=== PATIENT | male | born 1955 | race Hispanic/Latino ===

== ENCOUNTER 2017-11-30 07:31 | Inpatient (IN) | payer OTHER ==
[2017-11-28 10:25] VITALS: BP 129/74
[2017-11-28 10:30] LABS: BASOPHILS % (AUTO) 2.4 % (0.0-5.0); EOSINOPHILS % (AUTO) 2.7 % (0.0-8.0); HEMATOCRIT 40.7 % (42-54); LYMPHOCYTES % (AUTO) 39.5 % (21.0-51.0); MEAN CORPUSCULAR HEMOGLOBIN 21.8 pg (27.0-33.0); MEAN CORPUSCULAR HGB CONC 32.4 g/dL (32.0-36.0); MEAN CORPUSCULAR VOLUME 67.1 fL (79-99); MONOCYTES % (AUTO) 10.4 % (3.0-13.0); NUCLEATED RED BLOOD CELLS 0.1 % (0.0-0.19); PLATELET COUNT (AUTO) 233 K/uL (130-400); RED BLOOD CELL COUNT(AUTO) 6.06 MIL/uL (4.50-6.20); RED CELL DISTRIBUTION WIDTH 17.7 % (11.0-15.5); WHITE BLOOD COUNT (AUTO) 10.1 K/uL (4.8-10.8)
[2017-11-28 10:40] LABS: CREATININE 0.8 mg/dL (0.5-1.5); POTASSIUM 4.2 mmol/L (3.5-5.1)
[~2017-11-30] VITALS: Ht 177.8 cm; Wt 125.2 kg
[2017-11-30] VITALS (9 sets, daily range): BP systolic 131–165; BP diastolic 56–87
[~2017-11-30 07:31] MED LIST: ASPI-1181 PO; ATOR40TA71 PO; INSLAN SQ; INSU100I3 SQ; LIRA0.6P SQ; METF10004 PO; SERT50TA12 PO; VANCOMYCIN 1GM+NS 250ML 250 ML IV PRN; VERA180C2 PO
[2017-11-30 08:07] LABS: INR 1.02 (0.85-1.15); PARTIAL THROMBOPLASTIN TIME 25.4 SEC (26.3-35.5); PROTHROMBIN TIME 10.7 SEC (9.6-11.6)
[2017-11-30] MEDS ORDERED: SODIUM CHLORIDE 0.9% 1000ML 1,000 ML IV ONE (08:17)
[2017-11-30] MEDS ORDERED: MIDAZOLAM HCL 1 MG/ML 2ML VIAL ONE (11:35)
[2017-11-30] MEDS ORDERED: MEPERIDINE-PF 25 MG/ML SYG ONE (11:35)
[2017-11-30] MEDS ORDERED: LIDOCAINE HCL-MPF 2% 5ML VIAL ONE ×2 (11:35→12:18)
[2017-11-30] MEDS ORDERED: ISOPROTERENOL HCL 0.2 MG/ML AMP/VIAL/BAG ONE (11:36)
[2017-11-30 13:15] LABS: CREATINE KINASE MB 0.7 ng/mL (0.5-3.6); CREATINE KINASE, TOTAL 45 U/L (21-232); MYOGLOBIN 31 ng/mL (10-92); TROPONIN I < 0.04 ng/mL (0.00-0.06)
[2017-11-30] MEDS ORDERED: ACETAMINOPHEN-CODEINE 300/30MG TAB PO PRN (13:45)
[2017-11-30] MEDS ORDERED: DEXTROSE 50%-WATER 50 ML DISP.SYRIN IV PRN (13:45)
[2017-11-30] MEDS ORDERED: ACETAMINOPHEN 325 MG TAB PO PRN (13:45)
[2017-11-30] MEDS ORDERED: GLUCAGON 1MG KIT 1 MG ML IM PRN (13:45)
[2017-11-30] MEDS ORDERED: REGADENOSON 0.4 MG/5 ML PF SYG IVP SCH (15:30)
[2017-11-30] MEDS: INSULIN GLARGINE 100 UNITS/ML 10 ML VIAL SQ SCH (19:45)
[2017-11-30] MEDS: INSULIN HUMULIN R 100 UNIT/ML 3ML SQ SCH ×2 (19:45→21:25)
[2017-11-30] MEDS: INSULIN LISPRO 100 UNIT/ML 3ML SQ SCH (19:45)
[2017-11-30] MEDS: ATORVASTATIN CALCIUM 40 MG TABLET PO SCH (20:12)
[2017-11-30] MEDS: LIRAGLUTIDE 1.2 MG SQ SCH (20:12)
[2017-12-01] VITALS (10 sets, daily range): BP systolic 121–158; BP diastolic 43–84
[2017-12-01] MEDS: INSULIN LISPRO 100 UNIT/ML 3ML SQ SCH ×3 (05:54→17:48)
[2017-12-01] MEDS: INSULIN HUMULIN R 100 UNIT/ML 3ML SQ SCH ×4 (05:55→21:31)
[2017-12-01] MEDS: SERTRALINE HCL 50 MG TABLET PO SCH (08:37)
[2017-12-01] MEDS: ASPIRIN 81 MG EC TAB PO SCH (08:37)
[2017-12-01] MEDS: INSULIN GLARGINE 100 UNITS/ML 10 ML VIAL SQ SCH ×2 (08:40→17:48)
[2017-12-01] MEDS ORDERED: IOPAMIDOL-370 75 ML VIAL IV ONE ×2 (12:00→14:02)
[2017-12-01] MEDS ORDERED: BIVALIRUDIN 250 MG/VIAL IV ONE (14:00)
[2017-12-01] MEDS ORDERED: LIDOCAINE HCL-MPF 2% 5ML VIAL ONE (14:00)
[2017-12-01] MEDS ORDERED: NITROGLYCERIN 5 MG/ML 10 ML VIAL IV ONE (14:00)
[2017-12-01] MEDS ORDERED: IOHEXOL-350 50ML VIAL IV ONE (14:02)
[2017-12-01] MEDS ORDERED: SODIUM CHLORIDE 0.9% 1000ML 1,000 ML IV SCH (15:29)
[2017-12-01] MEDS: LIRAGLUTIDE 1.2 MG SQ SCH (20:26)
[2017-12-01] MEDS: ATORVASTATIN CALCIUM 40 MG TABLET PO SCH (20:28)
[2017-12-02 00:22] VITALS: BP 149/60
[2017-12-02 04:14] VITALS: BP 115/71
[2017-12-02 05:00] LABS: HEMATOCRIT 40.6 % (42-54); MEAN CORPUSCULAR HEMOGLOBIN 21.7 pg (27.0-33.0); MEAN CORPUSCULAR HGB CONC 32.4 g/dL (32.0-36.0); PLATELET COUNT (AUTO) 225 K/uL (130-400); RED BLOOD CELL COUNT(AUTO) 6.06 MIL/uL (4.50-6.20); RED CELL DISTRIBUTION WIDTH 17.8 % (11.0-15.5); WHITE BLOOD COUNT (AUTO) 10.4 K/uL (4.8-10.8)
[2017-12-02 05:15] LABS: CREATININE 0.9 mg/dL (0.5-1.5); POTASSIUM 3.5 mmol/L (3.5-5.1)
[2017-12-02] MEDS: INSULIN HUMULIN R 100 UNIT/ML 3ML SQ SCH ×4 (06:11→20:55)
[2017-12-02] MEDS: INSULIN LISPRO 100 UNIT/ML 3ML SQ SCH ×3 (06:41→16:35)
[2017-12-02] MEDS: ASPIRIN 81 MG EC TAB PO SCH (07:50)
[2017-12-02] MEDS: SERTRALINE HCL 50 MG TABLET PO SCH (07:50)
[2017-12-02] MEDS: INSULIN GLARGINE 100 UNITS/ML 10 ML VIAL SQ SCH ×2 (07:52→16:36)
[2017-12-02 07:56] VITALS: BP 128/59
[2017-12-02 11:00] VITALS: BP 156/79
[2017-12-02 16:39] VITALS: BP 141/70
[2017-12-02] MEDS: LIRAGLUTIDE 1.2 MG SQ SCH (20:04)
[2017-12-02] MEDS: ATORVASTATIN CALCIUM 40 MG TABLET PO SCH (20:14)
[2017-12-03 00:04] VITALS: BP 141/77
[2017-12-03 05:06] VITALS: BP 120/68
[2017-12-03] MEDS: INSULIN HUMULIN R 100 UNIT/ML 3ML SQ SCH ×4 (06:09→21:40)
[2017-12-03] MEDS: INSULIN LISPRO 100 UNIT/ML 3ML SQ SCH ×3 (06:21→17:00)
[2017-12-03 07:40] VITALS: BP 151/71
[2017-12-03] MEDS: SERTRALINE HCL 50 MG TABLET PO SCH (07:58)
[2017-12-03] MEDS: ASPIRIN 81 MG EC TAB PO SCH (07:58)
[2017-12-03] MEDS: INSULIN GLARGINE 100 UNITS/ML 10 ML VIAL SQ SCH ×2 (08:02→17:01)
[2017-12-03 11:40] VITALS: BP 125/68
[2017-12-03] MEDS ORDERED: ALPRAZOLAM 0.25 MG TABLET PO PRN (13:45)
[2017-12-03 16:46] VITALS: BP 138/68
[2017-12-03 19:00] VITALS: BP 129/77
[2017-12-03] MEDS: LIRAGLUTIDE 1.2 MG SQ SCH (20:38)
[2017-12-03] MEDS: ATORVASTATIN CALCIUM 40 MG TABLET PO SCH (20:39)
[2017-12-04] VITALS (31 sets, daily range): BP systolic 93–146; BP diastolic 40–94
[2017-12-04 05:12] LABS: MEAN CORPUSCULAR VOLUME 66.6 fL (79-99); NUCLEATED RED BLOOD CELLS 0.1 % (0.0-0.19); PLATELET COUNT (AUTO) 223 K/uL (130-400); RED BLOOD CELL COUNT(AUTO) 5.85 MIL/uL (4.50-6.20); RED CELL DISTRIBUTION WIDTH 17.9 % (11.0-15.5); WHITE BLOOD COUNT (AUTO) 10.9 K/uL (4.8-10.8)
[2017-12-04 05:13] LABS: CREATININE 0.8 mg/dL (0.5-1.5); POTASSIUM 3.2 mmol/L (3.5-5.1)
[2017-12-04 05:15] LABS: HEMOGLOBIN A1C 9.4 % (4.0-6.0)
[2017-12-04 05:16] LABS: INR 1.02 (0.85-1.15); PARTIAL THROMBOPLASTIN TIME 25.9 SEC (26.3-35.5); PROTHROMBIN TIME 10.7 SEC (9.6-11.6)
[2017-12-04] MEDS: INSULIN HUMULIN R 100 UNIT/ML 3ML SQ SCH ×2 (05:45→11:30)
[2017-12-04] MEDS: INSULIN LISPRO 100 UNIT/ML 3ML SQ SCH ×2 (05:45→11:30)
[2017-12-04 05:57] LABS: BAND NEUTROPHILS % (MANUAL) 2 % (0-2); BASOPHILS % (MANUAL) 2 % (0-2); EOSINOPHILS % (MANUAL) 1 % (1-6); LYMPHOCYTES % (MANUAL) 50 % (22-44); MAN.DIFF COMMENT-IMPRESSION MANUAL DIFFERENTIAL; MONOCYTES % (MANUAL) 6 % (2-9); PLATELET MORPHOLOGY COMMENT ADEQUATE; REACTIVE LYMPHOCYTES 1 % (0-0); SEGMENTED NEUTROPHILS % 38 % (40-70)
[2017-12-04] MEDS: INSULIN GLARGINE 100 UNITS/ML 10 ML VIAL SQ SCH (08:00)
[2017-12-04] MEDS ORDERED: NITROGLYCERIN 50 MG/D5% WATER 1 BOT ONE (08:02)
[2017-12-04] MEDS: ASPIRIN 81 MG EC TAB PO SCH (08:22)
[2017-12-04] MEDS: SERTRALINE HCL 50 MG TABLET PO SCH (08:22)
[2017-12-04] MEDS ORDERED: POTASSIUM CHLORIDE 20MEQ/100ML 300 ML IV ONE (09:15)
[2017-12-04] MEDS ORDERED: SODIUM BICARB 50MEQ 50ML VIAL ONE ×3 (09:16→15:30)
[2017-12-04] MEDS ORDERED: LIDOCAINE HCL-MPF 1% 2ML VIAL IVP PRN (09:30)
[2017-12-04] MEDS ORDERED: POTASSIUM CHLORIDE 20MEQ/100ML 100 ML IV PRN (09:30)
[2017-12-04] MEDS ORDERED: OCTYL 2-CYANOACRYLATE 1 EACH TP ONE (10:55)
[2017-12-04] MEDS ORDERED: BUPIVACAINE/PF 0.5% 30ML VIAL ONE (10:55)
[2017-12-04] MEDS ORDERED: BACITRACIN 50,000 UNIT VIAL ONE (10:56)
[2017-12-04] MEDS ORDERED: LIDOCAINE HCL-MPF 2% 5ML VIAL ONE (11:01)
[2017-12-04] MEDS ORDERED: MIDAZOLAM HCL 1 MG/ML 2ML VIAL ONE (11:31)
[2017-12-04] MEDS ORDERED: LIDOCAINE PF 2% 5ML ABBOJECT ONE (11:44)
[2017-12-04] MEDS ORDERED: NOREPINEPHRINE BITARTRATE 1 MG/1 ML ML IV ONE (11:44)
[2017-12-04] MEDS ORDERED: AMINOCAPROIC ACID 250 MG/ML 20 ML VIAL IV ONE (11:44)
[2017-12-04] MEDS ORDERED: GLYCOPYRROLATE 0.2 MG/ML 5 ML VIAL ONE (11:44)
[2017-12-04] MEDS ORDERED: NEOSTIGMINE 5MG/5ML SYR IV ONE (11:44)
[2017-12-04] MEDS ORDERED: PROTAMINE SULFATE 10 MG/ML 25ML VIAL IV ONE (11:44)
[2017-12-04] MEDS ORDERED: EPINEPHRINE 1 MG/ML AMPULE ONE (11:44)
[2017-12-04] MEDS ORDERED: HEPARIN SODIUM 1000UNIT/ML 10ML VIAL ONE ×2 (11:44→12:07)
[2017-12-04] MEDS ORDERED: ROCURONIUM BROMIDE 10MG/1ML 5ML VL ONE ×2 (11:44→11:46)
[2017-12-04] MEDS ORDERED: ESMOLOL HCL 10 MG/ML 10 ML VIAL ONE (11:44)
[2017-12-04] MEDS ORDERED: MILRINONE-D5W 20 MG/100 ML 100 ML IV ONE (11:44)
[2017-12-04] MEDS ORDERED: CEFUROXIME SODIUM 1.5 GM VIAL ONE (11:44)
[2017-12-04] MEDS ORDERED: PROPOFOL 10 MG/ML 20ML VIAL IV ONE (11:45)
[2017-12-04] MEDS ORDERED: FENTANYL CITRATE PF 50 MCG/1 ML 20ML VIAL IJ ONE (11:45)
[2017-12-04] MEDS ORDERED: MIDAZOLAM HCL 1 MG/ML 5ML VIAL ONE (11:45)
[2017-12-04] MEDS ORDERED: THROMBIN-JMI 5000 UNIT/VIAL TP ONE (12:07)
[2017-12-04 12:27] LABS: ABG BASE EXCESS -1.6 mmol/L (-2.0-3.0); ABG HCO3 24.1 mmol/L (21.0-28.0); ABG PCO2 44 mmHg (35-48)
[2017-12-04 13:27] LABS: ABG BASE EXCESS -4.1 mmol/L (-2.0-3.0); ABG HCO3 22.4 mmol/L (21.0-28.0); ABG OXYGEN SATURATION 98.9 % (95.0-99.0); ABG PCO2 46 mmHg (35-48)
[2017-12-04 13:59] LABS: ABG BASE EXCESS -1.6 mmol/L (-2.0-3.0); ABG HCO3 24.8 mmol/L (21.0-28.0); ABG OXYGEN SATURATION 92.5 % (95.0-99.0); ABG PCO2 49 mmHg (35-48)
[2017-12-04 14:36] LABS: ABG BASE EXCESS -1.2 mmol/L (-2.0-3.0); ABG HCO3 25.3 mmol/L (21.0-28.0); ABG OXYGEN SATURATION 98.9 % (95.0-99.0); ABG PCO2 50 mmHg (35-48)
[2017-12-04] MEDS ORDERED: SODIUM CHLORIDE 0.9% 500ML 500 ML IV SCH (14:37)
[2017-12-04] MEDS ORDERED: AMINOCAPROIC ACID 15,000 MG in SODIUM CHLORIDE 0.9% 250 ML IV SCH (14:45)
[2017-12-04] MEDS ORDERED: PROPOFOL 1000 MG/100 ML 100 ML IV PRN ×2 (14:45→15:15)
[2017-12-04] MEDS ORDERED: EPINEPHRINE 2 MG in SODIUM CHLORIDE 0.9% 250 ML IV PRN (14:45)
[2017-12-04] MEDS ORDERED: NITROGLYCERIN 50 MG/D5% WATER 250 BOT IV SCH (14:45)
[2017-12-04] MEDS ORDERED: SODIUM CHLORIDE 0.9% 1000ML 1,000 ML IV SCH (14:45)
[2017-12-04] MEDS ORDERED: NICARDIPINE HCL 100 MG in SODIUM CHLORIDE 0.9% 100 ML IV PRN (14:45)
[2017-12-04] MEDS ORDERED: ALBUMIN (HUMAN) 5% 250 ML IV PRN (14:45)
[2017-12-04] MEDS ORDERED: TRAMADOL HCL 50 MG TABLET PO PRN (14:45)
[2017-12-04] MEDS ORDERED: GLUCAGON 1MG KIT 1 MG ML IM PRN (14:45)
[2017-12-04] MEDS ORDERED: INSULIN REGULAR, HUMAN 3ML 100 UNIT in SODIUM CHLORIDE 0.9% 99 ML IV SCH ×2 (14:45)
[2017-12-04] MEDS ORDERED: ONDANSETRON HCL 4 MG/2 ML VIAL IV PRN (14:45)
[2017-12-04] MEDS ORDERED: CALCIUM GLUCONATE 1 GM in SODIUM CHLORIDE 0.9% 50 ML IV PRN (14:45)
[2017-12-04] MEDS ORDERED: MORPHINE SULFATE 4 MG/1ML SYG IV PRN (14:45)
[2017-12-04] MEDS ORDERED: NOREPINEPHRINE 4MG/NS 250ML 250 ML IV PRN (14:45)
[2017-12-04] MEDS ORDERED: ACETAMINOPHEN 650 MG SUPPOSITORY RC PRN (14:45)
[2017-12-04] MEDS ORDERED: DEXTROSE 50%-WATER 50 ML DISP.SYRIN IV PRN (14:45)
[2017-12-04] MEDS ORDERED: SODIUM CHLORIDE 0.9% 250 ML IV PRN (14:45)
[2017-12-04] MEDS ORDERED: POTASSIUM PHOS 15 mMOL+NS250ML 250 ML IV PRN (14:45)
[2017-12-04] MEDS ORDERED: SODIUM CHLORIDE 0.9% 10 ML VIAL IVP PRN (14:45)
[2017-12-04] MEDS ORDERED: ALBUMIN (HUMAN) 5% 250 ML IV ONE ×2 (15:18→15:26)
[2017-12-04 15:23] LABS: ABG BASE EXCESS -6.2 mmol/L (-2.0-3.0); ABG HCO3 21.3 mmol/L (21.0-28.0); ABG PCO2 51 mmHg (35-48)
[2017-12-04 15:57] LABS: ABG BASE EXCESS -3.5 mmol/L (-2.0-3.0); ABG HCO3 21.9 mmol/L (21.0-28.0); ABG OXYGEN SATURATION 92.1 % (95.0-99.0); ABG PCO2 41 mmHg (35-48)
[2017-12-04 16:41] LABS: ABG BASE EXCESS -7.5 mmol/L (-2.0-3.0); ABG HCO3 19.8 mmol/L (21.0-28.0); ABG OXYGEN SATURATION 92.8 % (95.0-99.0); ABG PCO2 47 mmHg (35-48)
[2017-12-04 16:42] LABS: HEMATOCRIT 39.7 % (42-54); MEAN CORPUSCULAR HEMOGLOBIN 21.6 pg (27.0-33.0); MEAN CORPUSCULAR HGB CONC 31.8 g/dL (32.0-36.0); NUCLEATED RED BLOOD CELLS 0.1 % (0.0-0.19); PLATELET COUNT (AUTO) 283 K/uL (130-400); RED BLOOD CELL COUNT(AUTO) 5.85 MIL/uL (4.50-6.20); RED CELL DISTRIBUTION WIDTH 17.8 % (11.0-15.5)
[2017-12-04] MEDS: POTASSIUM CHLORIDE 20MEQ/100ML 100 ML IV PRN (16:44)
[2017-12-04 16:45] LABS: WHITE BLOOD COUNT (AUTO) 36.3 K/uL (4.8-10.8)
[2017-12-04] MEDS: SODIUM BICARB 50MEQ 50ML VIAL IV PRN ×2 (16:50→18:12)
[2017-12-04 16:55] LABS: MAGNESIUM 1.2 mg/dL (1.80-2.40); PHOSPHORUS 5.4 mg/dL (2.5-4.9); POTASSIUM 3.6 mmol/L (3.5-5.1)
[2017-12-04 17:05] LABS: BAND NEUTROPHILS % (MANUAL) 4 % (0-2); BASOPHILS % (MANUAL) 1 % (0-2); LYMPHOCYTES % (MANUAL) 21 % (22-44); MONOCYTES % (MANUAL) 6 % (2-9); SEGMENTED NEUTROPHILS % 68 % (40-70)
[2017-12-04 17:06] LABS: MAN.DIFF COMMENT-IMPRESSION MANUAL DIFFERENTIAL; PLATELET MORPHOLOGY COMMENT GIANT PLTS PRESENT
[2017-12-04] MEDS: MAGNESIUM 2GM PREMIX 50ML 50 ML IV PRN (17:21)
[2017-12-04] MEDS: MORPHINE SULFATE 2 MG/ML 1ML SYG IV PRN (17:25)
[2017-12-04 18:10] LABS: ABG BASE EXCESS -6.6 mmol/L (-2.0-3.0); ABG OXYGEN SATURATION 96.1 % (95.0-99.0); ABG PCO2 44 mmHg (35-48)
[2017-12-04 20:34] LABS: ABG BASE EXCESS -0.9 mmol/L (-2.0-3.0); ABG HCO3 23.8 mmol/L (21.0-28.0); ABG PCO2 40 mmHg (35-48)
[2017-12-04] MEDS: ATORVASTATIN CALCIUM 40 MG TABLET PO SCH (21:00)
[2017-12-04] MEDS ORDERED: CEFUROXIME 1.5GM+NS 100ML 100 ML IV SCH (22:45)
[2017-12-04] MEDS: CEFUROXIME SODIUM 1.5 GM VIAL IVP SCH (23:37)
[2017-12-05] VITALS (38 sets, daily range): BP systolic 109–153; BP diastolic 61–92
[2017-12-05 00:25] LABS: ABG HCO3 28.7 mmol/L (21.0-28.0); ABG OXYGEN SATURATION 97.1 % (95.0-99.0); ABG PCO2 43 mmHg (35-48)
[2017-12-05] MEDS: ACETAMINOPHEN 325 MG TAB PO PRN ×2 (00:48→05:20)
[2017-12-05] MEDS: MORPHINE SULFATE 2 MG/ML 1ML SYG IV PRN ×3 (00:50→19:23)
[2017-12-05 02:04] LABS: ABG BASE EXCESS 4.8 mmol/L (-2.0-3.0); ABG HCO3 29.6 mmol/L (21.0-28.0); ABG OXYGEN SATURATION 95.5 % (95.0-99.0); ABG PCO2 44 mmHg (35-48)
[2017-12-05 03:59] LABS: HEMATOCRIT 37.7 % (42-54); MEAN CORPUSCULAR HEMOGLOBIN 21.5 pg (27.0-33.0); MEAN CORPUSCULAR HGB CONC 31.9 g/dL (32.0-36.0); MEAN CORPUSCULAR VOLUME 67.4 fL (79-99); PLATELET COUNT (AUTO) 178 K/uL (130-400); RED CELL DISTRIBUTION WIDTH 18.1 % (11.0-15.5); WHITE BLOOD COUNT (AUTO) 18.9 K/uL (4.8-10.8)
[2017-12-05 04:09] LABS: INR 1.09 (0.85-1.15); PARTIAL THROMBOPLASTIN TIME 25.7 SEC (26.3-35.5); PROTHROMBIN TIME 11.4 SEC (9.6-11.6)
[2017-12-05 04:11] LABS: CREATININE 0.8 mg/dL (0.5-1.5); MAGNESIUM 1.6 mg/dL (1.80-2.40); POTASSIUM 3.6 mmol/L (3.5-5.1)
[2017-12-05] MEDS: PANTOPRAZOLE 40 MG/VIAL IV SCH (08:13)
[2017-12-05] MEDS ORDERED: DEXTROSE 5 %-0.45 % NACL 1,000 ML IV SCH (08:15)
[2017-12-05] MEDS: MAGNESIUM 2GM PREMIX 50ML 50 ML IV PRN (08:16)
[2017-12-05] MEDS: POTASSIUM CHLORIDE 20MEQ/100ML 100 ML IV PRN (08:16)
[2017-12-05] MEDS ORDERED: VANCOMYCIN 1GM+NS 250ML 250 ML IV SCH (10:30)
[2017-12-05] MEDS: CEFUROXIME SODIUM 1.5 GM VIAL IVP SCH ×2 (11:13→23:20)
[2017-12-05] MEDS ORDERED: LIDOCAINE HCL MPF 1% 5ML VIAL ONE ×2 (12:11→12:13)
[2017-12-05] MEDS ORDERED: BUPIVACAINE/PF 0.25% 30ML VIAL IJ ONE (12:11)
[2017-12-05] MEDS ORDERED: VANCOMYCIN 1GM+NS 250ML 500 ML IV ONE (12:27)
[2017-12-05] MEDS ORDERED: MEPERIDINE-PF 25 MG/ML SYG ONE ×2 (12:35→12:48)
[2017-12-05] MEDS ORDERED: MIDAZOLAM HCL 1 MG/ML 2ML VIAL ONE ×2 (12:35→12:48)
[2017-12-05] MEDS ORDERED: ACETAMINOPHEN 325 MG TAB PO PRN (13:45)
[2017-12-05] MEDS ORDERED: ACETAMINOPHEN-CODEINE 300/30MG TAB PO PRN ×2 (13:45)
[2017-12-05] MEDS: SERTRALINE HCL 50 MG TABLET PO SCH (16:58)
[2017-12-05] MEDS: ASPIRIN 81 MG EC TAB PO SCH (16:58)
[2017-12-05] MEDS ORDERED: METOPROLOL TARTRATE 25 MG TAB PO SCH (21:00)
[2017-12-05] MEDS: ATORVASTATIN CALCIUM 40 MG TABLET PO SCH (21:15)
[2017-12-06] VITALS (21 sets, daily range): BP systolic 111–150; BP diastolic 52–98
[2017-12-06] MEDS: MORPHINE SULFATE 2 MG/ML 1ML SYG IV PRN ×2 (00:56→04:19)
[2017-12-06 04:29] LABS: MEAN CORPUSCULAR HEMOGLOBIN 22.1 pg (27.0-33.0); MEAN CORPUSCULAR HGB CONC 32.7 g/dL (32.0-36.0); MEAN CORPUSCULAR VOLUME 67.7 fL (79-99); PLATELET COUNT (AUTO) 182 K/uL (130-400); RED BLOOD CELL COUNT(AUTO) 5.17 MIL/uL (4.50-6.20); RED CELL DISTRIBUTION WIDTH 18.3 % (11.0-15.5); WHITE BLOOD COUNT (AUTO) 20.6 K/uL (4.8-10.8)
[2017-12-06 04:49] LABS: CREATININE 0.8 mg/dL (0.5-1.5); MAGNESIUM 1.8 mg/dL (1.80-2.40); POTASSIUM 3.6 mmol/L (3.5-5.1)
[2017-12-06] MEDS: ASPIRIN 81 MG EC TAB PO SCH (09:00)
[2017-12-06] MEDS: METOPROLOL TARTRATE 25 MG TAB PO SCH ×2 (09:00→20:06)
[2017-12-06] MEDS: SERTRALINE HCL 50 MG TABLET PO SCH (09:00)
[2017-12-06] MEDS ORDERED: DEXTROSE 50%-WATER 50 ML DISP.SYRIN IV PRN (09:15)
[2017-12-06] MEDS ORDERED: GLUCAGON 1MG KIT 1 MG ML IM PRN (09:15)
[2017-12-06] MEDS ORDERED: POTASSIUM CHLORIDE 20MEQ/100ML 100 ML IV PRN (09:15)
[2017-12-06] MEDS ORDERED: LIDOCAINE HCL-MPF 1% 2ML VIAL IVP PRN (09:15)
[2017-12-06] MEDS: PANTOPRAZOLE 40 MG/VIAL IV SCH (09:25)
[2017-12-06] MEDS: POTASSIUM CHLORIDE 20 MEQ ERTAB PO PRN ×2 (09:25→11:24)
[2017-12-06] MEDS: MAGNESIUM 2GM PREMIX 50ML 50 ML IV PRN (11:25)
[2017-12-06] MEDS: INSULIN HUMULIN R 100 UNIT/ML 3ML SQ SCH ×3 (11:47→20:24)
[2017-12-06] MEDS: ATORVASTATIN CALCIUM 40 MG TABLET PO SCH (20:06)
[2017-12-06] MEDS: TRAMADOL HCL 50 MG TABLET PO PRN (20:07)
[2017-12-07] VITALS (16 sets, daily range): BP systolic 104–159; BP diastolic 49–97
[2017-12-07] MEDS: TRAMADOL HCL 50 MG TABLET PO PRN (01:51)
[2017-12-07 03:35] LABS: BASOPHILS % (AUTO) 0.7 % (0.0-5.0); EOSINOPHILS % (AUTO) 0.4 % (0.0-8.0); LYMPHOCYTES % (AUTO) 16.2 % (21.0-51.0); MEAN CORPUSCULAR HEMOGLOBIN 21.9 pg (27.0-33.0); MEAN CORPUSCULAR HGB CONC 32.3 g/dL (32.0-36.0); MEAN CORPUSCULAR VOLUME 67.6 fL (79-99); MONOCYTES % (AUTO) 12.9 % (3.0-13.0); NEUTROPHILS % (AUTO) 69.8 % (40.0-77.0); PLATELET COUNT (AUTO) 173 K/uL (130-400); RED BLOOD CELL COUNT(AUTO) 4.88 MIL/uL (4.50-6.20); RED CELL DISTRIBUTION WIDTH 18.1 % (11.0-15.5); WHITE BLOOD COUNT (AUTO) 15.7 K/uL (4.8-10.8)
[2017-12-07 03:56] LABS: CREATININE 0.8 mg/dL (0.5-1.5); POTASSIUM 3.5 mmol/L (3.5-5.1)
[2017-12-07] MEDS: INSULIN HUMULIN R 100 UNIT/ML 3ML SQ SCH ×4 (05:32→21:32)
[2017-12-07] MEDS: INSULIN GLARGINE 100 UNITS/ML 10 ML VIAL SQ SCH (07:57)
[2017-12-07] MEDS: POTASSIUM CHLORIDE 10% ELIXIR 20 MEQ/15 ML UDCUP PO PRN ×3 (07:58→11:30)
[2017-12-07] MEDS: SERTRALINE HCL 50 MG TABLET PO SCH (07:58)
[2017-12-07] MEDS: METOPROLOL TARTRATE 25 MG TAB PO SCH ×2 (07:58→21:29)
[2017-12-07] MEDS: ASPIRIN 81 MG EC TAB PO SCH (07:59)
[2017-12-07] MEDS: FUROSEMIDE 20 MG TABLET PO SCH ×2 (07:59→21:30)
[2017-12-07] MEDS ORDERED: PHARMACY COMMUNICATION MISC SCH (09:00)
[2017-12-07] MEDS: POTASSIUM CHLORIDE 20 MEQ ERTAB PO SCH ×2 (09:00→21:30)
[2017-12-07] MEDS: PANTOPRAZOLE 40 MG/VIAL IV SCH (09:00)
[2017-12-07] MEDS: ENOXAPARIN SODIUM 40 MG/0.4 ML SYRINGE SQ SCH (09:00)
[2017-12-07] MEDS: ATORVASTATIN CALCIUM 40 MG TABLET PO SCH (21:30)
[2017-12-08 03:50] VITALS: BP 133/80
[2017-12-08 04:13] LABS: MAGNESIUM 1.7 mg/dL (1.80-2.40); POTASSIUM 3.2 mmol/L (3.5-5.1)
[2017-12-08] MEDS: MAGNESIUM 2GM PREMIX 50ML 50 ML IV PRN (06:06)
[2017-12-08] MEDS: POTASSIUM CHLORIDE 20 MEQ ERTAB PO PRN ×2 (06:07→16:53)
[2017-12-08] MEDS: INSULIN HUMULIN R 100 UNIT/ML 3ML SQ SCH ×4 (06:10→21:37)
[2017-12-08 07:00] VITALS: BP 132/78
[2017-12-08] MEDS: ASPIRIN 81 MG EC TAB PO SCH (10:02)
[2017-12-08] MEDS: SERTRALINE HCL 50 MG TABLET PO SCH (10:02)
[2017-12-08] MEDS: PANTOPRAZOLE SODIUM 40 MG TABLET.DR PO SCH (10:02)
[2017-12-08] MEDS: METOPROLOL TARTRATE 25 MG TAB PO SCH ×2 (10:02→21:34)
[2017-12-08] MEDS: FUROSEMIDE 20 MG TABLET PO SCH ×2 (10:02→21:34)
[2017-12-08] MEDS: POTASSIUM CHLORIDE 20 MEQ ERTAB PO SCH ×2 (10:03→21:34)
[2017-12-08] MEDS: ENOXAPARIN SODIUM 40 MG/0.4 ML SYRINGE SQ SCH (10:03)
[2017-12-08] MEDS: INSULIN GLARGINE 100 UNITS/ML 10 ML VIAL SQ SCH (10:10)
[2017-12-08 11:00] VITALS: BP 117/83
[2017-12-08 16:00] VITALS: BP 140/84
[2017-12-08 19:41] VITALS: BP 136/97
[2017-12-08] MEDS: ATORVASTATIN CALCIUM 40 MG TABLET PO SCH (21:34)
[2017-12-08 23:56] VITALS: BP 136/89
[2017-12-09 03:58] VITALS: BP 139/94
[2017-12-09] MEDS: INSULIN HUMULIN R 100 UNIT/ML 3ML SQ SCH ×2 (06:30→12:18)
[2017-12-09] MEDS ORDERED: METO25 PO (06:34)
[2017-12-09 07:00] VITALS: BP 137/79
[2017-12-09] MEDS: ENOXAPARIN SODIUM 40 MG/0.4 ML SYRINGE SQ SCH (09:33)
[2017-12-09] MEDS: PANTOPRAZOLE SODIUM 40 MG TABLET.DR PO SCH (09:33)
[2017-12-09] MEDS: SERTRALINE HCL 50 MG TABLET PO SCH (09:33)
[2017-12-09] MEDS: METOPROLOL TARTRATE 25 MG TAB PO SCH (09:33)
[2017-12-09] MEDS: ASPIRIN 81 MG EC TAB PO SCH (09:33)
[2017-12-09] MEDS: FUROSEMIDE 20 MG TABLET PO SCH (09:34)
[2017-12-09] MEDS: POTASSIUM CHLORIDE 20 MEQ ERTAB PO SCH (09:34)
[2017-12-09] MEDS: INSULIN GLARGINE 100 UNITS/ML 10 ML VIAL SQ SCH (09:35)
[2017-12-09 11:00] VITALS: BP 127/78
== END 2017-12-09 17:42 | DRG 233 ==
LOC: DAH 07:31 → DAHIP 07:32 → 2BH 14:01 → 2DH 18:34 → 2CV 12-04 11:24 → 2CH 12-05 06:42 → 2AH 12-07 17:54
PROVIDERS: ADMIT Internal Medicine Pulmonary Disease; ATTEND Internal Medicine Pulmonary Disease
PROC: 4A023N7 Measurement of Cardiac Sampling and Pressure, Left Heart, Percutaneous Approach (ICD-10-PCS; principal; 2017-12-01)
PROC: B2111ZZ Fluoroscopy of Multiple Coronary Arteries using Low Osmolar Contrast (ICD-10-PCS; 2017-12-01)
PROC: B2151ZZ Fluoroscopy of Left Heart using Low Osmolar Contrast (ICD-10-PCS; 2017-12-01)
PROC: B3121ZZ Fluoroscopy of Left Subclavian Artery using Low Osmolar Contrast (ICD-10-PCS; 2017-12-01)
PROC: 02100Z9 Bypass Coronary Artery, One Artery from Left Internal Mammary, Open Approach (ICD-10-PCS; 2017-12-04)
PROC: 06BQ4ZZ Excision of Left Saphenous Vein, Percutaneous Endoscopic Approach (ICD-10-PCS; 2017-12-04)
PROC: 021009W Bypass Coronary Artery, One Artery from Aorta with Autologous Venous Tissue, Open Approach (ICD-10-PCS; 2017-12-04)
PROC: 0BH17EZ Insertion of Endotracheal Airway into Trachea, Via Natural or Artificial Opening (ICD-10-PCS; 2017-12-04)
PROC: 5A1945Z Respiratory Ventilation, 24-96 Consecutive Hours (ICD-10-PCS; 2017-12-04)
PROC: 5A1223Z Performance of Cardiac Pacing, Continuous (ICD-10-PCS; 2017-12-04)
DX: I25.119 Atherosclerotic heart disease of native coronary artery with unspecified angina pectoris (principal); I50.33 Acute on chronic diastolic (congestive) heart failure; D62 Acute posthemorrhagic anemia; I47.1 Supraventricular tachycardia; I44.1 Atrioventricular block, second degree; E11.9 Type 2 diabetes mellitus without complications; I11.0 Hypertensive heart disease with heart failure; E03.9 Hypothyroidism, unspecified; E66.9 Obesity, unspecified; E78.5 Hyperlipidemia, unspecified; F41.8 Other specified anxiety disorders; G47.33 Obstructive sleep apnea (adult) (pediatric); I49.5 Sick sinus syndrome; L40.9 Psoriasis, unspecified; Z79.01 Long term (current) use of anticoagulants; Z68.39 Body mass index [BMI] 39.0-39.9, adult; Z71.89 Other specified counseling
CPT/HCPCS: 33208; 33210; 36415; 71045; 78452; 80048; 82330; 82435; 82550; 82553; 82803; 82947; 82948; 83036; 83605; 83735; 83874; 84100; 84132; 84295; 84484; 85018; 85025; 85027; 85347; 85610; 85730; 86850; 86900; 86901; 86922; 93005; 93017; 93459; 93619; 93880; 94002; 94003; 94150; 96374; 97039; 99156; 99157; A4218; A4606; A7048; A9500; C1730; C1760; C1785; C1894; C9113; J0171; J0583; J0610; J0697; J1644; J1650; J1815; J2001; J2175; J2250; J2260; J2270; J2704; J2710; J2720; J2785; J3010; J3370; J3475; J3480; J3490; J7030; J7040; J7042; P9045; Q9967